=== PATIENT | male | born 1995 | race Caucasian/White ===

== ENCOUNTER 2018-06-02 13:53 | Outpatient (CLI) | payer OTHER, SELFPAY ==
[2018-06-02 14:36] LABS: Abs Immature Grans 0.01 k/cumm (0.0-0.09); Absolute Basophil Count 0.02 k/cumm (0.0-0.2); Absolute Eosinophil Count 0.03 k/cumm (0.0-0.7); Absolute Lymphocyte Count 1.59 k/cumm (1.2-3.4); Absolute Monocyte Count 0.51 k/cumm (0.11-0.7); Absolute Neutrophil Count 3.59 k/cumm (1.2-6.7); Basophils % 0.3; Eosinophils % 0.5; HCT 42.9 % (40.0-50.0); HGB 14.5 g/dL (13.5-17.5); Immature Grans % 0.2; Lymphocytes % 27.7; Mean Corp. HGB Concentration 33.8 g/dL (32.0-36.0); Mean Corpuscular Hemoglobin 29.5 pg (27.0-33.0); Mean Corpuscular Volume 87.4 fL (80-95); Mean Platelet Volume 13.8 fL (8.0-11.0); Monocytes % 8.9; Neutrophils % 62.4; Platelet Count 184 x1000/uL (130-400); RBC 4.91 m/cumm (4.50-6.00); RBC Distribution Width 13.1 % (11.8-14.1); White Blood Cell Count 5.75 k/cumm (4.4-10.8)
[2018-06-02 15:08] LABS: ALT 65 U/L (12-78); AST 25 U/L (15-37); Albumin 4.6 g/dL (3.4-5.0); Alkaline Phosphatase 48 U/L (46-116); Anion Gap 13.5 mmol/L (3-11); BUN 12 mg/dL (7-18); Bilirubin, Total 0.9 mg/dL (0.2-1.0); C-Reactive Protein 0.22 mg/dL (0.0-0.3); CO2 25.5 mmol/L (21.0-32.0); CREATININE 1.02 mg/dL (0.70-1.30); Calcium 9.4 mg/dL (8.5-10.1); Chloride 101 mmol/L (98-107); Glucose 84 mg/dL (70-100); Potassium 4.2 mmol/L (3.5-5.1); Sodium 140 mmol/L (136-145); Total Protein 7.4 g/dL (6.4-8.2)
[2018-06-02 16:37] LABS: ESR 7 MM/HR (0-15)
== END 2018-06-02 14:13 ==
PROVIDERS: Visit Provider Family Medicine
DX: R19.7 Diarrhea, unspecified (principal); K62.5 Hemorrhage of anus and rectum
CPT/HCPCS: 36415; 80053; 85652; 85025; 86140

== ENCOUNTER 2018-06-03 23:08 | Emergency (ER) | payer OTHER, SELFPAY ==
[2018-06-03 23:17] VITALS: BP 136/77; PULSE 87; RESP 16; TEMP 36.8; O2SAT 99
--- NOTE | 2018-06-04 00:03 | W.ED.GENAD ---
Discharge Plan Disposition Patient Disposition: HOME Condition: Good Discharge Details Chief Complaint: Abd Prob Clinical Impression: Abdominal cramping Primary Care Provider: None,None ED Provider: Kahlil Easley Home Meds and New Rx's Prescriptions: No Action No Known Home Meds RF: 0 Discharge Instructions Instructions: Abdominal Pain (ED) Additional Instructions: Keep your radiology appointment for Tuesday as scheduled. [facility] is [facility]. Return to emergency department for high fever, worsening/persistent abdominal pain, persistent vomiting, bloody stool, other concerns per. Medical Decision Making Patient has normal vital signs. He has unremarkable labs from yesterday. He has a completely benign abdomen. Stool is Hemoccult negative. Patient is scheduled for small bowel follow-through on Tuesday. Apparently they would like to rule out Crohn's disease. Given what he is describing I do not think this is likely. Patient came here because he was concerned about AAA. He has no risk factors and is young and healthy. There is no pulsatile mass. I am not concerned that this is in the differential. Patient reassured. [facility] test. Return to ED for worsening/persistent abdominal pain, vomiting, high fever, bloody stool. Lab Data Lab results reviewed: Yes I reviewed the patient's lab results. HPI General Mode of arrival: ambulatory. Date/Time Provider Initiated Documentation: 06/03/18 23:49. Limitations to Documentation: no limitations. Information obtained by: patient. HPI Narrative: Patient presents to ED with complaints of intermittent abdominal cramping. He also has episodes of diarrhea with constipation. He has noticed a little bit of blood on occasion in his stool over the last day. Symptoms started a couple days ago. He was seen at the [facility]. He had laboratory studies done here yesterday. He is scheduled for radiology study next week. He has not had fever. He has not had nausea or vomiting. He does have an appetite but does not want to eat just because he is worried that it might make him have pain or diarrhea. He has also had some muscle spasm on the right side of his back. He denies any urinary symptoms. He denies any medical or surgical history. Related Data Home Medications Medication Instructions Recorded Confirmed Unknown [No Known Home Meds] 06/03/18 06/03/18 Allergies Allergy/AdvReac Type Severity Reaction Status Date / Time No Known Allergies Allergy Unverified 06/03/18 23:21 General Stated Complaint: Abd Prob ZION: 3 Review of Systems Constitutional Denies chills, Denies fever(s), Denies headache(s), Denies poor appetite and Denies weakness ENT Denies otalgia, Denies facial pain, Denies headache(s), Denies nasal congestion, Denies neck pain and Denies sore throat Cardiovascular Denies chest pain, Denies edema and Denies dyspnea Respiratory Denies cough and Denies dyspnea Gastrointestinal Denies abdominal pain, Reports constipation, Reports cramping, Reports diarrhea, Denies nausea and Denies vomiting Genitourinary Denies hematuria, Denies dysuria, Denies flank pain, Denies testicular pain, Denies urinary frequency, Denies urinary hesitancy and Denies urinary incontinence Musculoskeletal Reports back pain, Denies myalgias, Denies arthralgias, Denies neck pain and Denies numbness Integumentary/Breasts Denies rash Neurologic Denies headache(s), Denies focal weakness, Denies numbness and Denies weakness [facility] Social History current occupational status: student Smoking/Tobacco Use Status: Current every day tobacco type: e-cigarettes alcohol intake: current alcohol intake frequency: a few times a month substance use type: marijuana Social History current occupational status: student Smoking/Tobacco Use Status: Current every day tobacco type: e-cigarettes alcohol intake: current alcohol intake frequency: a few times a month substance use type: marijuana Exam Const General: cooperative, comfortable and no acute distress Orientation: alert and oriented x3 HENMT Head: normocephalic and atraumatic Mouth: moist mucous membranes Eyes Sclera: sclerae normal Neck Neck: normal visual inspection, trachea midline and supple Resp Effort & Inspection: normal respiratory effort Auscultation: clear to auscultation bilaterally Cardio Rate: regular rate Rhythm: regular rhythm Heart Sounds: S1 normal and S2 normal GI Inspection: normal to inspection Palpation: soft, no hepatosplenomegaly, not firm, no guarding, no hernias, no masses, no pulsatile masses and nontender Auscultation: normal bowel sounds Rectal Exam: normal sphincter tone, prostate normal, heme negative stool, No hemorrhoids and No lesions 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 Male General Exam: Yes normal external exam and No hernia Back/Spine/Pelvis Back: no CVA tenderness and No back tenderness Thoracic/Lumbar Spine: thoracic and lumbar spine normal to inspection and thoraco-lumbar ROM normal Skin General skin exam: no rashes or lesions noted Neuro General: alert, oriented x3, no focal motor deficits and CN's II-XI intact bilaterally Extrem General: normal to inspection, full ROM and no clubbing, cyanosis or edema Course Vital Signs Temperature 98.2 F 06/03/18 23:17 Pulse 87 06/03/18 23:17 Respiratory Rate 16 06/03/18 23:17 Blood Pressure 136/77 06/03/18 23:17 Pulse Oximetry 99 06/03/18 23:17 Temperature 98.2 F 06/03/18 23:17 Temperature Source Temporal Artery Scan 06/03/18 23:17 Pulse 87 06/03/18 23:17 Respiratory Rate 16 06/03/18 23:17 Respiratory Effort Non-Labored 06/03/18 23:20 Blood Pressure 136/77 06/03/18 23:17 Blood Pressure Position Sitting 06/03/18 23:17 Pulse Oximetry 99 06/03/18 23:17 Oxygen Delivery Method Room Air 06/03/18 23:17 Oxygen Flow Rate 0 06/03/18 23:17 Pain Level 3 06/03/18 23:17
--- NOTE | 2018-06-04 00:24 | ED.GENADUL_ITS ---
Discharge Plan Disposition Patient Disposition: HOME Condition: Good Discharge Details Chief Complaint: Abd Prob Clinical Impression: Abdominal cramping Primary Care Provider: None,None ED Provider: Kahlil Easley Home Meds and New Rx's Prescriptions: No Action No Known Home Meds RF: 0 Discharge Instructions Instructions: Abdominal Pain (ED) Additional Instructions: Keep your radiology appointment for Tuesday as scheduled. [facility] is [facility]. Return to emergency department for high fever, worsening/persistent abdominal pain, persistent vomiting, bloody stool, other concerns per. Medical Decision Making Patient has normal vital signs. He has unremarkable labs from yesterday. He has a completely benign abdomen. Stool is Hemoccult negative. Patient is scheduled for small bowel follow-through on Tuesday. Apparently they would like to rule out Crohn's disease. Given what he is describing I do not think this is likely. Patient came here because he was concerned about AAA. He has no risk factors and is young and healthy. There is no pulsatile mass. I am not concerned that this is in the differential. Patient reassured. [facility] test. Return to ED for worsening/ persistent abdominal pain, vomiting, high fever, bloody stool. Lab Data Lab results reviewed: Yes I reviewed the patient's lab results. HPI General Mode of arrival: ambulatory . Date/Time Provider Initiated Documentation: 06/03/18 23:49 . Limitations to Documentation: no limitations . Information obtained by: patient . HPI Narrative: Patient presents to ED with complaints of intermittent abdominal cramping. He also has episodes of diarrhea with constipation. He has noticed a little bit of blood on occasion in his stool over the last day. Symptoms started a couple days ago. He was seen at the [facility]. He had laboratory studies done here yesterday. He is scheduled for radiology study next week. He has not had fever. He has not had nausea or vomiting. He does have an appetite but does not want to eat just because he is worried that it might make him have pain or diarrhea. He has also had some muscle spasm on the right side of his back. He denies any urinary symptoms. He denies any medical or surgical history. Related Data Home Medications Medication Instructions Recorded Confirmed Unknown [No Known Home Meds] 06/03/18 06/03/18 Allergies Allergy/AdvReac Type Severity Reaction Status Date / Time No Known Allergies Allergy Unverified 06/03/18 23:21 General Stated Complaint: Abd Prob ZION: 3 Review of Systems Constitutional Denies chills, Denies fever(s), Denies headache(s), Denies poor appetite and Denies weakness ENT Denies otalgia, Denies facial pain, Denies headache(s), Denies nasal congestion , Denies neck pain and Denies sore throat Cardiovascular Denies chest pain, Denies edema and Denies dyspnea Respiratory Denies cough and Denies dyspnea Gastrointestinal Denies abdominal pain, Reports constipation, Reports cramping, Reports diarrhea , Denies nausea and Denies vomiting Genitourinary Denies hematuria, Denies dysuria, Denies flank pain, Denies testicular pain, Denies urinary frequency, Denies urinary hesitancy and Denies urinary incontinence Musculoskeletal Reports back pain, Denies myalgias, Denies arthralgias, Denies neck pain and Denies numbness Integumentary/Breasts Denies rash Neurologic Denies headache(s), Denies focal weakness, Denies numbness and Denies weakness [facility] Social History current occupational status: student Smoking/Tobacco Use Status: Current every day tobacco type: e-cigarettes alcohol intake: current alcohol intake frequency: a few times a month substance use type: marijuana Social History current occupational status: student Smoking/Tobacco Use Status: Current every day tobacco type: e-cigarettes alcohol intake: current alcohol intake frequency: a few times a month substance use type: marijuana Exam Const General: cooperative, comfortable and no acute distress Orientation: alert and oriented x3 HENMT Head: normocephalic and atraumatic Mouth: moist mucous membranes Eyes Sclera: sclerae normal Neck Neck: normal visual inspection, trachea midline and supple Resp Effort & Inspection: normal respiratory effort Auscultation: clear to auscultation bilaterally Cardio Rate: regular rate Rhythm: regular rhythm Heart Sounds: S1 normal and S2 normal GI Inspection: normal to inspection Palpation: soft, no hepatosplenomegaly, not firm, no guarding, no hernias, no masses, no pulsatile masses and nontender Auscultation: normal bowel sounds Rectal Exam: normal sphincter tone, prostate normal, heme negative stool, No hemorrhoids and No lesions 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 Male General Exam: Yes normal external exam and No hernia Back/Spine/Pelvis Back: no CVA tenderness and No back tenderness Thoracic/Lumbar Spine: thoracic and lumbar spine normal to inspection and thoraco-lumbar ROM normal Skin General skin exam: no rashes or lesions noted Neuro General: alert, oriented x3, no focal motor deficits and CN's II-XI intact bilaterally Extrem General: normal to inspection, full ROM and no clubbing, cyanosis or edema Course Vital Signs Temperature 98.2 F 06/03/18 23:17 Pulse 87 06/03/18 23:17 Respiratory Rate 16 06/03/18 23:17 Blood Pressure 136/77 06/03/18 23:17 Pulse Oximetry 99 06/03/18 23:17 Temperature 98.2 F 06/03/18 23:17 Temperature Source Temporal Artery Scan 06/03/18 23:17 Pulse 87 06/03/18 23:17 Respiratory Rate 16 06/03/18 23:17 Respiratory Effort Non-Labored 06/03/18 23:20 Blood Pressure 136/77 06/03/18 23:17 Blood Pressure Position Sitting 06/03/18 23:17 Pulse Oximetry 99 06/03/18 23:17 Oxygen Delivery Method Room Air 06/03/18 23:17 Oxygen Flow Rate 0 06/03/18 23:17 Pain Level 3 06/03/18 23:17
[2018-06-04 00:28] VITALS: BP 119/73; PULSE 66; RESP 14; TEMP 37.1; O2SAT 98
== END 2018-06-04 00:27 | disposition home or self-care (01) ==
LOC: ER 06-04 00:28
PROVIDERS: Emergency Provider Emergency Medicine
DX: R10.84 Generalized abdominal pain (principal); K59.00 Constipation, unspecified; R19.7 Diarrhea, unspecified; M62.830 Muscle spasm of back
CPT/HCPCS: 99282

== ENCOUNTER 2018-06-06 00:49 | Outpatient (CLI) | payer OTHER, SELFPAY ==
[2018-06-06] MEDS: Barium Sulfate 60% W/V 355 ML BTL PO ×2 (10:22)
--- NOTE | 2018-06-06 10:22 | DI.RAD_ITS ---
SYMPTOM/DIAGNOSIS: DIARRHEA, RECTAL BLEEDING SMALL BOWEL FOLLOW THROUGH: Fluoroscopy Time: 44 SEC Preliminary KUB shows no evidence of bowel obstruction. The bones and joints appear intact. The transit time through the small bowel was approximately 45 minutes. No intrinsic or extrinsic masses, strictures or ulcers are seen in the small bowel The ileocecal region has a normal appearance. IMPRESSION: Normal small bowel follow through.
== END 2018-06-06 01:09 ==
PROVIDERS: Visit Provider Family Medicine
DX: R19.7 Diarrhea, unspecified (principal); K62.5 Hemorrhage of anus and rectum
CPT/HCPCS: 74250

== ENCOUNTER 2018-06-23 20:45 | Emergency (ER) | payer OTHER, SELFPAY ==
[2018-06-23 20:48] VITALS: BP 120/78; PULSE 77; RESP 18; TEMP 37.2; O2SAT 100
--- NOTE | 2018-06-23 21:03 | W.ED.GENAD ---
Discharge Plan Disposition Patient Disposition: HOME Condition: Stable Discharge Details Chief Complaint: GenMedical Clinical Impression: Segovia cyst Primary Care Provider: None,None ED Provider: Gonzalez Rock Home Meds and New Rx's Prescriptions: No Action No Known Home Meds RF: 0 Discharge Instructions Additional Instructions: Based on your exam I suspect you have a segovia's cyst. There is no findings at this time to suggest a blood clot or infection You can take 1000mg tylenol and 600mg ibuprofen every 6 hours for pain as needed if your leg becomes swollen or you have fevers or knee becomes red or swollen return to the emergency department Medical Decision Making 22 yo male who denies chronic med problems or recent immobilization or fevers comes in with cc of right lower medial thigh pain/knee pain. No falls or trauma, has no swelling of the knee or warmth to suggest infection. Has full rom of the knee, no calf pain or leg swelling. doubt entities such as fx, dvt baed on exam and do not feel imaging required. Could be strain though doesn't remember any injuries, could also be bakery's cyst. ADvised RICE and return if leg becomes swollen or if he has fevers/knee swelling/redness Differential Diagnosis strain, sprain, segovia's cyst HPI General Mode of arrival: ambulatory. Date/Time Provider Initiated Documentation: 06/23/18 20:53. Limitations to Documentation: no limitations. Information obtained by: patient. History of Present Illness 22 year old M presents to the emergency department with the chief complaint of lower thigh/knee pain, described as mild, with intensity rated at 4. Quality is described as aching, and is localized to the right and lower extremity. Patient reports no radiation. Patient started experiencing this day(s) (1) and it has been constant. No relieving factors improve symptom(s), No exacerbating factors reported . Patient notes no other symptoms.. Patient did receive the following treatments prior to arrival, none Related Data Home Medications Medication Instructions Recorded Confirmed Unknown [No Known Home Meds] 06/03/18 06/23/18 Allergies Allergy/AdvReac Type Severity Reaction Status Date / Time No Known Allergies Allergy Unverified 06/23/18 20:54 General Stated Complaint: GenMedical ZION: 4 Review of Systems Review of Systems All systems reviewed & are unremarkable except as noted in HPI and below Constitutional Denies chills, Denies fever(s) and Denies weakness Cardiovascular Denies chest pain and Denies dyspnea Respiratory Denies dyspnea Gastrointestinal Denies abdominal pain, Denies nausea and Denies vomiting Musculoskeletal Denies joint swelling Neurologic Denies weakness Endocrine Denies heat intolerance [facility] Medical History History of KUB (Acute 06/06/18) Marijuana use (Chronic) Abdominal pain (Acute) Watery stools (Acute) Intentional weight loss (Acute) Anxiety (Chronic) Blood in stool (Acute) Social History current occupational status: student Smoking/Tobacco Use Status: Current every day tobacco type: e-cigarettes alcohol intake: current alcohol intake frequency: a few times a month substance use type: marijuana Exam Const General: no acute distress Orientation: alert HENMT Head: normal to inspection Ears: external ears normal General nose exam: external nose normal Mouth: moist mucous membranes Eyes General: appearance normal, both eyes and all related structures Neck Neck: normal visual inspection Resp Effort & Inspection: normal respiratory effort and able to speak in complete sentences Cardio Rate: regular rate Skin General skin exam: no rashes or lesions noted Neuro General: alert and oriented x3 Extrem General: normal to inspection Psych Mental Status: mental status grossly normal Course Vital Signs Temperature 37.2 C 06/23/18 20:48 Pulse 77 06/23/18 20:48 Respiratory Rate 18 06/23/18 20:48 Blood Pressure 120/78 06/23/18 20:48 Pulse Oximetry 100 06/23/18 20:48 Temperature 37.2 C 06/23/18 20:48 Temperature Source Skin 06/23/18 20:48 Pulse 77 06/23/18 20:48 Respiratory Rate 18 06/23/18 20:48 Respiratory Effort 06/23/18 20:48 Blood Pressure 120/78 06/23/18 20:48 Pulse Oximetry 100 06/23/18 20:48 Oxygen Delivery Method Room Air 06/23/18 20:48 Oxygen Flow Rate 0 06/23/18 20:48
--- NOTE | 2018-06-23 21:06 | ED.GENADUL_ITS ---
Discharge Plan Disposition Patient Disposition: HOME Condition: Stable Discharge Details Chief Complaint: GenMedical Clinical Impression: Segovia cyst Primary Care Provider: None,None ED Provider: Gonzalez Rock Home Meds and New Rx's Prescriptions: No Action No Known Home Meds RF: 0 Discharge Instructions Additional Instructions: Based on your exam I suspect you have a segovia's cyst. There is no findings at this time to suggest a blood clot or infection You can take 1000mg tylenol and 600mg ibuprofen every 6 hours for pain as needed if your leg becomes swollen or you have fevers or knee becomes red or swollen return to the emergency department Medical Decision Making 22 yo male who denies chronic med problems or recent immobilization or fevers comes in with cc of right lower medial thigh pain/knee pain. No falls or trauma, has no swelling of the knee or warmth to suggest infection. Has full rom of the knee, no calf pain or leg swelling. doubt entities such as fx, dvt baed on exam and do not feel imaging required. Could be strain though doesn't remember any injuries, could also be bakery's cyst. ADvised RICE and return if leg becomes swollen or if he has fevers/knee swelling/redness Differential Diagnosis strain, sprain, segovia's cyst HPI General Mode of arrival: ambulatory . Date/Time Provider Initiated Documentation: 06/23/18 20:53 . Limitations to Documentation: no limitations . Information obtained by: patient . History of Present Illness 22 year old M presents to the emergency department with the chief complaint of lower thigh/knee pain, described as mild, with intensity rated at 4. Quality is described as aching, and is localized to the right and lower extremity. Patient reports no radiation. Patient started experiencing this day(s) (1) and it has been constant. No relieving factors improve symptom(s), No exacerbating factors reported . Patient notes no other symptoms.. Patient did receive the following treatments prior to arrival, none Related Data Home Medications Medication Instructions Recorded Confirmed Unknown [No Known Home Meds] 06/03/18 06/23/18 Allergies Allergy/AdvReac Type Severity Reaction Status Date / Time No Known Allergies Allergy Unverified 06/23/18 20:54 General Stated Complaint: GenMedical ZION: 4 Review of Systems Review of Systems All systems reviewed & are unremarkable except as noted in HPI and below Constitutional Denies chills, Denies fever(s) and Denies weakness Cardiovascular Denies chest pain and Denies dyspnea Respiratory Denies dyspnea Gastrointestinal Denies abdominal pain, Denies nausea and Denies vomiting Musculoskeletal Denies joint swelling Neurologic Denies weakness Endocrine Denies heat intolerance [facility] Medical History History of KUB (Acute 06/06/18) Marijuana use (Chronic) Abdominal pain (Acute) Watery stools (Acute) Intentional weight loss (Acute) Anxiety (Chronic) Blood in stool (Acute) Social History current occupational status: student Smoking/Tobacco Use Status: Current every day tobacco type: e-cigarettes alcohol intake: current alcohol intake frequency: a few times a month substance use type: marijuana Exam Const General: no acute distress Orientation: alert HENMT Head: normal to inspection Ears: external ears normal General nose exam: external nose normal Mouth: moist mucous membranes Eyes General: appearance normal, both eyes and all related structures Neck Neck: normal visual inspection Resp Effort & Inspection: normal respiratory effort and able to speak in complete sentences Cardio Rate: regular rate Skin General skin exam: no rashes or lesions noted Neuro General: alert and oriented x3 Extrem General: normal to inspection Psych Mental Status: mental status grossly normal Course Vital Signs Temperature 37.2 C 06/23/18 20:48 Pulse 77 06/23/18 20:48 Respiratory Rate 18 06/23/18 20:48 Blood Pressure 120/78 06/23/18 20:48 Pulse Oximetry 100 06/23/18 20:48 Temperature 37.2 C 06/23/18 20:48 Temperature Source Skin 06/23/18 20:48 Pulse 77 06/23/18 20:48 Respiratory Rate 18 06/23/18 20:48 Respiratory Effort 06/23/18 20:48 Blood Pressure 120/78 06/23/18 20:48 Pulse Oximetry 100 06/23/18 20:48 Oxygen Delivery Method Room Air 06/23/18 20:48 Oxygen Flow Rate 0 06/23/18 20:48
== END 2018-06-23 21:14 | disposition home or self-care (01) ==
LOC: ER 21:14
PROVIDERS: Emergency Provider Emergency Medicine
DX: M71.22 Synovial cyst of popliteal space [Baker], left knee (principal)
CPT/HCPCS: 99282; 99283

== ENCOUNTER 2018-06-24 14:25 | Emergency (ER) | payer OTHER, BC, SELFPAY ==
[2018-06-24 14:29] VITALS: BP 125/74; PULSE 87; RESP 16; TEMP 36.8; O2SAT 97
--- NOTE | 2018-06-24 15:03 | ED.GENADUL_ITS ---
Discharge Plan Disposition Patient Disposition: HOME Condition: Good Discharge Details Chief Complaint: Nk/Back Pain Clinical Impression: Knee pain, left Primary Care Provider: None,None ED Provider: Grey Daigle Home Meds and New Rx's Prescriptions: New acetaminophen [Mapap Extra Strength] 500 MG tablet 500 mg PO Q6H 5 Days Qty: 60 RF: 0 lidocaine [Lidoderm] 1 PATCH patch 1 patch Topical Q24H Qty: 4 RF: 0 ibuprofen [Motrin IB] 200 MG tablet 600 mg PO Q6H 5 Days Qty: 60 RF: 0 Discharge Instructions Instructions: Knee Pain (ED) Additional Instructions: Please take Tylenol and Motrin as needed for pain. Please ice it every 15 minutes. Please follow-up for your outpatient ultrasound appointment. Please continue to use your Luiz wrap as we discussed. If you notice any worsening of your symptoms, or any new symptoms such as vomiting, diarrhea, fever, chills, shortness of breath, chest pain, numbness, weakness, or fainting , please return immediately to the emergency department for reevaluation. Please follow up with your primary care provider as soon as possible for reassessment and reevaluation. As always, it was a pleasure participating in your medical care today. Medical Decision Making This is a pleasant 22-year-old male who presents for second opinion on his knee. The patient states that he developed mild knee pain on the medial aspect roughly 24 hours ago, he was seen by my colleague Dr. oRck yesterday, wh o performed an appropriate physical exam, and felt the patient signs and symptoms were inconsistent with a DVT and were clinically concerning with a Segovia's cyst. Patient was sent home, and his used an Luiz wrap but has not been using any ice, Tylenol or Motrin as recommended. He came in today for second opinion. Patient's physical exam findings have not changed. He does have slight left lower sided back pain, however this comes and goes and he states that he is asymptomatic now. There are no concerning red flags for his back pain with no IV drug use, no saddle anesthesia, no signs of injury or trauma. Physical exam of his knee demonstrates some mild tenderness at the medial aspect on palpation of the muscular structures, concerning for a sartorius sprain. Additionally he does have some fullness behind his left knee concerning for Segovia's cyst. Range of motion, and other testing of the knee demonstrates no abnormalities. No signs of osseous fracture or abnormality, no joint laxity. I do not think that an x-ray is indicated at this time. Patient's PERC and wells scores are both negative and in the lowest risk category. However the patient states that he does have a lot of anxiety issues, and he is very reassured at this time however he is concerned that if he goes home he will start to worry again and worried about a DVT. He has no red flags or risk factors for DVT and I feel that this is both unlikely and clinically inconsistent with his current physical exam findings. However through shared decision making process and respecting patient's wishes I have offered an ultrasound on an outpatient basis since we do not have ultrasound available at this time. Patient has accepted this. I discussed potential anticoagulation starting, and the patient states that he does not want any medications and he certainly does not want any anticoagulant medications. I discussed with the patient the vital importance of continuing the Tylenol, Motrin and icing as directed. We discussed red flags which return the patient understands as well as the importance of close follow- up for his ultrasound of his lower extremity. All questions were answered from the patient. Patient will be discharged home with outpatient ultrasound, continue Tylenol, Motrin, and ice use. I have extensively reviewed the treatment plan and discharge instructions with the patient and their family. I have addressed all patient concerns at this time. The patient and family was made aware of what symptoms to monitor for that would warrant a return to the emergency department. Discussed the plan with the patient and family, they demonstrate verbal understanding and agreement with our assessment and plan at this time. HPI General Date/Time Provider Initiated Documentation: 06/24/18 14:29 . HPI Narrative: This is a 22-year-old male with past medical history of irritable bowel syndrome, and anxiety who presents today for evaluation of knee pain. The patient's pain began yesterday. He denies any inciting event. He denies any trauma. He denies hearing any pops. He was seen and assessed here in the emergency department by Dr. Rock. At that time the patient's physical exam was clinically consistent with any acute pathologies and he was discharged home with a diagnosis of a Segovia's cyst. The patient states that he went home, but later felt that his visit was too quick and he wanted a reassessment and a second opinion. He states that he has a history of anxiety when he thinks about potential bad things that could happen, and he has thought about a blood clot is very worried about this. Patient does admit to some mild back pain on the left that comes and goes occasionally. It is not severe, there is no radiation down the leg. He has no associated numbness or tingling. He denies any bowel or bladder incontinence. He denies any weakness in his lower extremities. Denies PE risk factors such as recent long car rides, immobilization, recent surgery, prior history of DVT or PE, family history of PE or DVT, morbid obesity, exogenous estrogen and smoking, hemoptysis, history of cancer. The patient denies any trauma, any falls, or any other modifying factors historically. He denies any previous injury to the joint. Pain is very mild and located on the medial aspect of his left knee. It is worse with palpation, not particularly worsened with movement. He has no limp. Patient denies any other complaints at this time. He denies any recent surgeries. He denies any IV or illicit drug use. He denies any systemic symptoms of fever or chills. Related Data Home Medications Medication Instructions Recorded Confirmed acetaminophen [Mapap Extra 500 mg PO Q6H 5 Days #60 tab 06/24/18 Strength] ibuprofen [Motrin Ib] 600 mg PO Q6H 5 Days #60 tab 06/24/18 lidocaine [Lidoderm] 1 patch TOPICAL Q24H #4 patch 06/24/18 Previous Rx's Medication Instructions Recorded acetaminophen [Mapap Extra 500 mg PO Q6H 5 Days #60 tab 06/24/18 Strength] ibuprofen [Motrin Ib] 600 mg PO Q6H 5 Days #60 tab 18 lidocaine [Lidoderm] 1 patch TOPICAL Q24H #4 patch 06/24/18 Allergies Allergy/AdvReac Type Severity Reaction Status Date / Time No Known Allergies Allergy Unverified 06/24/18 14:33 General Stated Complaint: Nk/Back Pain ZION: 4 Review of Systems Review of Systems All systems reviewed & are unremarkable except as noted in HPI and below PFSH Social History current occupational status: student Smoking/Tobacco Use Status: Current every day tobacco type: e-cigarettes alcohol intake: current alcohol intake frequency: a few times a month substance use type: marijuana Exam Narrative Exam Narrative: 1.Const: Well-nourished, Well-developed, appearing stated age 2.Eyes: PERRL, no conjunctival injection, and symmetrical lids. 3.ENT: Atraumatic external nose and ears. Moist MM. Neck: Symmetric, trachea midline, No thyromegaly. 4.CVS: +S1/S2, No murmurs or gallops. Peripheral pulses 2+ and equal in all extremities. Brisk capillary refill in all extremities. 5.RESP: Unlabored respiratory effort. Clear to auscultation bilaterally. No wheezes rales or rhonchi 6.GI: Soft, Nontender/Nondistended, No hepatosplenomegaly. No guarding or rebound. 7.MSK: Normocephalic/Atraumatic, Extremities w/o deformity or ttp No cyanosis or clubbing, Normal movement of all extremities no midline tenderness to palpation over the CTLS spine. Normal ROM in flexion, extension, side bend, and rotation. Patient has +5 out of 5 strength in the lower extremities in dorsiflexion and plantarflexion, knee flexion and extension, hip flexion and extension. There is +2 over 2 dorsalis pedis pulses bilaterally. There is normal sensation to the skin with light touch at the foot, knee, and hip. Normal saddle sensation. Good sensation over the deep sural nerve area bilaterally. Rectal exam demonstrated normal rectal tone, normal perirectal sensation.. Reflexes are +2 over 4 in the patellar reflex bilaterally. +5 out of 5 strength in the medial, ulnar, radial nerve distribution bilaterally in the hands as well as intact light touch sensation to these dermatomes on the hands. Patient has +5 out of 5 strength in the lower extremities in dorsiflexion and plantarflexion, knee flexion and extension, hip flexion and extension. There is +2 over 2 dorsalis pedis pulses bilaterally. There is normal sensation to the skin with light touch at the foot knee and hip. Patient demonstrates no ligamentous laxity or pain with varus or valgus stressing. Kavitha test demonstrated no tenderness. No laxity or pain on anterior posterior drawer test. Mild fullness over the medial aspect of the knee in the posterior aspect. Minimal tenderness on palpation of the muscular structures of the medial knee. Good range of motion with no restrictions, soft compartments in all components of the lower extremity 8.Skin: Warm, Dry. No rashes or lesions. 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 Sensation grossly intact, no focal neurologic deficits. 10.Psych: (AAO) x3. Appropriate mood and affect Course Vital Signs Temperature 36.8 C 06/24/18 14:29 Pulse 87 06/24/18 14:29 Respiratory Rate 16 06/24/18 14:29 Blood Pressure 125/74 06/24/18 14:29 Pulse Oximetry 97 06/24/18 14:29 Temperature 36.8 C 06/24/18 14:29 Temperature Source Skin 06/24/18 14:29 Pulse 87 06/24/18 14:29 Respiratory Rate 16 06/24/18 14:29 Respiratory Effort Non-Labored 06/24/18 14:32 Blood Pressure 125/74 06/24/18 14:29 Pulse Oximetry 97 06/24/18 14:29 Pain Level 0 06/24/18 14:29
== END 2018-06-24 15:33 | disposition home or self-care (01) ==
PROVIDERS: Emergency Provider Student in an Organized Health Care Education/Training Program
DX: M25.562 Pain in left knee (principal); M71.22 Synovial cyst of popliteal space [Baker], left knee
CPT/HCPCS: 99282

== ENCOUNTER 2018-06-26 00:32 | Outpatient (CLI) | payer OTHER, SELFPAY ==
--- NOTE | 2018-06-26 11:02 | DI.US_ITS ---
SYMPTOMS/DIAGNOSIS: PAIN LEFT LOWER EXTREMITY, ? DVT DUPLEX VENOUS ULTRASOUND, LEFT LOWER EXTREMITY: Duplex evaluation of the deep venous system was performed according to the usual protocol. The deep veins are freely compressible throughout to the level of the popliteal veins. There is normal Doppler flow visible throughout and there is excellent flow augmentation with manual calf compression. CONCLUSION: No evidence of deep venous thrombosis.
== END 2018-06-26 00:52 ==
PROVIDERS: Visit Provider Student in an Organized Health Care Education/Training Program
DX: M79.662 Pain in left lower leg (principal)
CPT/HCPCS: 93971

== ENCOUNTER 2018-06-26 11:34 | Emergency (ER) | payer OTHER, SELFPAY ==
[2018-06-26 11:41] VITALS: BP 117/60; PULSE 60; RESP 16; TEMP 36.9
== END 2018-06-26 11:58 | disposition left before discharge ==
LOC: ER 11:50
DX: M79.662 Pain in left lower leg (principal)

== ENCOUNTER 2018-07-22 12:47 | Emergency (ER) | payer OTHER, BC, SELFPAY ==
[2018-07-22 12:50] VITALS: BP 129/73; PULSE 87; RESP 16; TEMP 36.7; O2SAT 99
[2018-07-22 13:17] LABS: Bilirubin Negative (Negative); Blood Negative (Negative); Clarity Clear; Glucose Negative (Negative); Ketones Negative (Negative); Leukocyte Esterase Negative (Negative); Nitrite Negative (Negative); Urobilinogen 0.2 EU/dL (Up TO 0.2)
--- NOTE | 2018-07-22 13:37 | W.ED.GENAD ---
Discharge Plan Disposition Patient Disposition: HOME Condition: Stable Discharge Details Chief Complaint: GenMedical Clinical Impression: Groin swelling, Chronic knee pain Primary Care Provider: None,None ED Provider: Rae Geiger Home Meds and New Rx's Prescriptions: No Action lidocaine [Lidoderm] 1 PATCH patch 1 patch Topical Q24H Qty: 4 RF: 0 Discharge Instructions Instructions: Groin Strain (ED), Knee Pain (ED) Additional Instructions: You will receive a call from care management regarding a follow-up appointment with your primary care doctor. Return to the emergency department with any worsening or new concerning symptoms. Discharge Data Discharge Date/Time-TO BE ENTERED AT DEPARTURE: 07/22/18 14:39 Discharge Physician: Rae Geiger Medical Decision Making 22-year-old male who presents with 2 complaints. First complaint is swelling at the base of his penis that occurs after intercourse. Admits to some swelling currently. He denies any pain, itching, discharge. He also admits to occasional burning with urination but this is very rare. He also denies any fever, vomiting or abdominal pain. States he is sexually active with one partner and denies any known STDs. Second complaint is chronic left knee pain for the past few months. Patient was seen here last month for the same complaint and was diagnosed with a Segovia's cyst. Patient states he followed up and had an ultrasound which was negative for a cyst or a DVT he. He denies any knee pain at this time and states it is intermittent. Examination of the genitourinary region reveals a very minimal amount of edema noted to the base of the left penis. Without patient complaining of this, it may not be even noticeable. There is no erythema, induration or fluctuance. There are no lesions noted. The remainder of the exam is normal. He has a normal left knee exam. I do not see any evidence of infection, trauma to the knee and he is neurovascularly intact. Discussed with patient the possibilities of his groin symptoms including groin strain, lymph node, cyst, lipoma. Also discussed the possibilities of his chronic left knee pain and he denies any known injury or trauma, and no evidence of infection, making the possibility is to include some sort of arthritis We checked a clean catch urinalysis which was negative. I discussed with patient obtaining a dirty sample due to his complaints of rarely having dysuria but he is declining this at this time would rather leave. Will place patient on care management list to arrange for follow-up appoint with primary care doctor and return here at any time. Medical Records Medical records reviewed: Yes I reviewed the patient's medical records. Lab Data Lab results reviewed: Yes I reviewed the patient's lab results. Lab results narrative: Laboratory Tests Range/Units 07/22/18 07/22/18 13:00 13:59 Urine Color (Yellow) Yellow Cancelled Urine Clarity Clear Cancelled Urine pH (5-8) 7.0 Cancelled Ur Specific [place] (1.005-1.025) 1.020 Cancelled Urine Protein (Negative) mg/dL Negative Cancelled Urine Ketones (Negative) mg/dL Negative Cancelled Urine Blood (Negative) Negative Cancelled Urine Nitrite (Negative) Negative Cancelled Urine Bilirubin (Negative) Negative Cancelled Urine Urobilinogen (Up TO 0.2) EU/dL 0.2 Cancelled Ur Leukocyte Esterase (Negative) Negative Cancelled Urine Glucose (Negative) mg/dL Negative Cancelled HPI General Mode of arrival: ambulatory. Date/Time Provider Initiated Documentation: 07/22/18 12:56. Limitations to Documentation: no limitations. Information obtained by: patient. HPI Narrative: Patient is a 22-year-old male who presents with 2 complaints. First complaint is swelling at the base of his penis that occurs after intercourse. Admits to some swelling currently. He denies any pain, itching, discharge. He also admits to occasional burning with urination but this is very rare. He also denies any fever, vomiting or abdominal pain. States he is sexually active with one partner and denies any known STDs. Second complaint is chronic left knee pain for the past few months. Patient was seen here last month for the same complaint and was diagnosed with a Segovia's cyst. Patient states he followed up and had an ultrasound which was negative for a cyst or a DVT. He denies any knee pain at this time and states it is intermittent. Related Data Home Medications Medication Instructions Recorded Confirmed lidocaine [Lidoderm] 1 patch TOPICAL Q24H #4 patch 06/24/18 07/22/18 Previous Rx's Medication Instructions Recorded lidocaine [Lidoderm] 1 patch TOPICAL Q24H #4 patch 06/24/18 Allergies Allergy/AdvReac Type Severity Reaction Status Date / Time No Known Allergies Allergy Verified 07/22/18 12:50 General Stated Complaint: GenMedical ZION: 3 Review of Systems Review of Systems All systems reviewed & are unremarkable except as noted in HPI and below Constitutional Reports as per HPI, Denies chills and Denies fever(s) Eyes Denies blurry vision ENT Denies dizziness, Denies sore throat and Denies throat swelling Cardiovascular Denies chest pain and Denies dyspnea Respiratory Denies dyspnea Gastrointestinal Denies abdominal pain, Denies diarrhea and Denies vomiting Genitourinary Denies hematuria, Denies difficulty urinating, Denies difficulty with ejaculations, Denies erectile dysfunction, Denies genital lesions, Reports dysuria, Denies painful ejaculations, Denies penile discharge and Denies testicular pain Musculoskeletal Denies back pain and Denies numbness Integumentary/Breasts Denies lesions and Denies rash Neurologic Denies dizziness and Denies numbness Allergic/Immunologic Denies throat swelling [facility] Medical History History of KUB (Acute 06/06/18) Marijuana use (Chronic) Abdominal pain (Acute) Watery stools (Acute) Intentional weight loss (Acute) Anxiety (Chronic) Blood in stool (Acute) Social History current occupational status: student Smoking/Tobacco Use Status: Current every day tobacco type: e-cigarettes alcohol intake: current alcohol intake frequency: a few times a month substance use type: marijuana Exam Const General: cooperative, healthy appearing and no acute distress HENMT Head: normal to inspection Face and sinus: normal facial exam Eyes General: appearance normal, both eyes and all related structures Pupils: PERRL EOM: EOM intact bilaterally Neck Neck: normal visual inspection and No submandibular swelling Lymphatic: no lymphadenopathy noted Chest Chest: normal inspection of the chest and no tenderness Resp Effort & Inspection: normal respiratory effort and able to speak in complete sentences Auscultation: clear to auscultation bilaterally Cardio Rate: regular rate Rhythm: regular rhythm GI Inspection: normal to inspection Palpation: soft, not firm, not rigid and nontender Auscultation: normal bowel sounds Male General Exam: No ecchymosis, Yes edema on the left (very minimal area approx [id number] located at L side base of penis), No erythema, No hernia, No lacerations, No lesions and No tenderness Scrotum: scrotum normal Testes: normal Skin General skin exam: no rashes or lesions noted Neuro General: alert, awake and oriented x3 Cognition: normal cognition Speech: speech normal Motor: muscle tone normal throughout Sensory Exam: no sensory deficits noted Extrem General: normal to inspection, full ROM, normal capillary refill, no calf tenderness bilaterally and no edema Left lower extremity: knee Details: normal to inspection, normal ROM and knee ligament exam normal; no tenderness, no swelling, no abrasions, no lacerations, no ecchymosis, no crepitus, no deformity and no unusual warmth Psych Appearance: grossly normal Mental Status: mental status grossly normal Speech and Movement: speech and movement normal Affect: normal affect Course Vital Signs Temperature 98.1 F 07/22/18 12:50 Pulse 87 07/22/18 12:50 Respiratory Rate 16 07/22/18 12:50 Blood Pressure 129/73 07/22/18 12:50 Pulse Oximetry 99 07/22/18 12:50 Temperature 98.1 F 07/22/18 12:50 Temperature Source Temporal Artery Scan 07/22/18 12:50 Pulse 87 07/22/18 12:50 Respiratory Rate 16 07/22/18 12:50 Respiratory Effort 07/22/18 13:25 Blood Pressure 129/73 07/22/18 12:50 Pulse Oximetry 99 07/22/18 12:50 Oxygen Delivery Method Room Air 07/22/18 12:50 Oxygen Flow Rate 0 07/22/18 12:50 Pain Level 3 07/22/18 12:50 Lab/Test Results Lab/Test Results: Laboratory Tests Range/Units 07/22/18 13:00 Urine Color (Yellow) Yellow Urine Clarity Clear Urine pH (5-8) 7.0 Ur Specific [place] (1.005-1.025) 1.020 Urine Protein (Negative) mg/dL Negative Urine Ketones (Negative) mg/dL Negative Urine Blood (Negative) Negative Urine Nitrite (Negative) Negative Urine Bilirubin (Negative) Negative Urine Urobilinogen (Up TO 0.2) EU/dL 0.2 Ur Leukocyte Esterase (Negative) Negative Urine Glucose (Negative) mg/dL Negative
--- NOTE | 2018-07-24 10:05 | CMPROGNOTE_ITS ---
Care Management Progress Note 07/24-Dr. Geiger requested assistance with a PCP (Lynne) f/u in 1-2 weeks for groin pain and chronic knee pain. Referral faxed to [facility] this am.
== END 2018-07-22 14:39 | disposition home or self-care (01) ==
LOC: ER 14:45
PROVIDERS: Emergency Provider Physician Assistant; PCP Family Medicine
DX: N48.89 Other specified disorders of penis (principal); M25.562 Pain in left knee; G89.29 Other chronic pain; R30.0 Dysuria
CPT/HCPCS: 99282; 81003

== ENCOUNTER 2018-09-12 07:58 | Outpatient (CLI) | payer OTHER, SELFPAY ==
--- NOTE | 2018-09-12 16:14 | DI.US_ITS ---
SYMPTOM/DIAGNOSIS: LT INGUINAL PAIN, R10.32, ? MASS, LLQ PAIN HERNIA/INGUINAL ULTRASOUND: There is no evidence of a hernia. Multiple small lymph nodes are demonstrated, the largest measuring approximately 1.5 cm. in maximal diameter in the left groin.
== END 2018-09-12 08:18 ==
PROVIDERS: PCP Family Medicine; Visit Provider Specialist/Technologist Athletic Trainer
DX: R10.32 Left lower quadrant pain (principal); R59.0 Localized enlarged lymph nodes
CPT/HCPCS: 76857

== ENCOUNTER 2018-09-28 15:29 | Emergency (ER) | payer OTHER, SELFPAY ==
[2018-09-28 15:42] VITALS: BP 122/64; PULSE 75; RESP 16; TEMP 36.9; O2SAT 100
--- NOTE | 2018-09-28 16:03 | ED.GENADUL_ITS ---
Discharge Plan Disposition Patient Disposition: HOME Condition: Good Discharge Details Chief Complaint: Chest Pain Clinical Impression: Precordial catch syndrome Primary Care Provider: Boris Doyle ED Provider: Grey Daigle Home Meds and New Rx's Prescriptions: No Action lidocaine [Lidoderm] 1 PATCH patch 1 patch Topical Q24H Qty: 4 RF: 0 Discharge Instructions Instructions: Chest Pain (ED) Additional Instructions: Yourr symptoms are consistent with precordial catch syndrome. There is no evidence of a heart attack or popped lung on ultrasound exam and EKG. please drink 10-12 cups of water per day, and take Tylenol and Motrin as needed for pain .if you notice any worsening of your symptoms, or any new symptoms such as vomiting, diarrhea, fever, chills, shortness of breath, chest pain, numbness, weakness, or fainting , please return immediately to the emergency department for reevaluation. Please follow up with your primary care provider as soon as possible for reassessment and reevaluation. As always, it was a pleasure participating in your medical care today. Referrals: Boris Doyle [Primary Care Provider] - Discharge Data Discharge Date/Time-TO BE ENTERED AT DEPARTURE: 09/28/18 16:09 Medical Decision Making This is a pleasant 22-year-old male who comes in with 1-1/2 days of occasional sharp chest pain, not on by certain positions, but also relieved with movement and on its own. The pain is sharp in nature, it lasted roughly 1 second but it goes away completely. He has no red flags for pulmonary embolism, no family history of cardiac disease, no family history of sudden , no cardiac risk factors for himself, or signs of trauma. Physical exam reveals no abnormalities, no concerning red flags of tearing sensation, pulse discrepancy, or syncope. Bedside limited ultrasound demonstrates normal lung sliding from both lungs, no evidence of pericardial effusion on limited bedside ultrasound. EKG is normal sinus rhythm with no significant abnormalities. No clinical evidence of STEMI. I feel that the patient signs and symptoms are clinically consistent with precordial catch syndrome, and at this time clinically inconsistent with PE, dissection, or myocardial infarction. No clinical evidence of pericarditis at this time. Recommend continue NSAIDs at home, stretching, and close follow-up. We discussed red flags which to return and the patient understands. I have extensively reviewed the treatment plan and discharge instructions with the patient. I have addressed all patient concerns at this time. The patient was made aware of what symptoms to monitor for that would warrant a return to the emergency department. Discussed the plan with the patient, they demonstrate verbal understanding and agreement with our assessment and plan at this time. Precordial catch syndrome, 15: 38 Rate 81, intervals normal, sinus rhythm, no significant ST elevations or depressions, no T wave inversions, no evidence of epsilon wave or delta wave. Normal EKG HPI General Date/Time Provider Initiated Documentation: 09/28/18 15:45 . HPI Narrative: This is a 22-year-old male with a past medical history of mild anxiety, presents today for evaluation of chest pain. The patient states that yesterday he developed mild left chest achiness, it would come and go just last a few seconds. Today he had 2 or 3 episodes of brief sharp chest pain that would last roughly 1 second, and then completely resolved. Symptoms are worse with movement, but at the same time also improved with movement and repositioning. He denies any associated cough, fever, chills, neuritic chest pain, chest heaviness or chest tightness. He denies any arm, neck, or shoulder pain. He denies any tearing sensation in his chest. He denies any vomiting or diarrhea. He denies any headache, numbness, tingling, weakness or fever. The patient denies any previous symptoms like this. He denies any family history of cardiac disease. He denies any tobacco abuse. Denies PE risk factors such as recent long car rides, immobilization, recent surgery, prior history of DVT or PE, family history of PE or DVT, morbid obesity, exogenous estrogen and smoking, hemoptysis, history of cancer.He denies any recent trauma or other modifying factors. He denies any IV or illicit drug use or pertinent family history. Related Data Home Medications Medication Instructions Recorded Confirmed lidocaine [Lidoderm] 1 patch TOPICAL Q24H #4 patch 06/24/18 09/28/18 Previous Rx's Medication Instructions Recorded lidocaine [Lidoderm] 1 patch TOPICAL Q24H #4 patch 06/24/18 Allergies Allergy/AdvReac Type Severity Reaction Status Date / Time No Known Allergies Allergy Verified 09/28/18 15:45 General Stated Complaint: Chest Pain ZION: 2 Review of Systems Review of Systems All systems reviewed & are unremarkable except as noted in HPI and below PFSH Social History Smoking/Tobacco Use Status: Current every day Tobacco Type: e-cigarettes Alcohol Intake: current Alcohol Intake frequency: a few times a month Drug use: Occasionally Substance use type: marijuana Do you feel safe in your relationship?: Yes Exam Narrative Exam Narrative: 1.Const: Well-nourished, Well-developed, appearing stated age 2.Eyes: PERRL, no conjunctival injection, and symmetrical lids. 3.ENT: Atraumatic external nose and ears. Moist MM. Neck: Symmetric, trachea midline, No thyromegaly. 4.CVS: +S1/S2, No murmurs or gallops. Peripheral pulses 2+ and equal in all extremities. Brisk capillary refill in all extremities. Dorsalis pedis, posterior tibial and radial pulse +2 in all extremities. 5.RESP: Unlabored respiratory effort. Clear to auscultation bilaterally. No wheezes rales or rhonchi 6.GI: Soft, Nontender/Nondistended, No hepatosplenomegaly. No guarding or rebound. 7.MSK: Normocephalic/Atraumatic, Extremities w/o deformity or ttp No cyanosis or clubbing, Normal movement of all extremities 8.Skin: Warm, Dry. No rashes or lesions. 9.Neuro: healthcare market consultant II-XII grossly intact. Sensation grossly intact, no focal neurologic deficits. 10.Psych: (AAO) x3. Appropriate mood and affect Course Vital Signs Temperature 36.9 C 09/28/18 15:42 Pulse 75 09/28/18 15:42 Respiratory Rate 16 09/28/18 15:42 Blood Pressure 122/64 09/28/18 15:42 Pulse Oximetry 100 09/28/18 15:42 Temperature 36.9 C 09/28/18 15:42 Temperature Source Skin 09/28/18 15:42 Pulse 75 09/28/18 15:42 Respiratory Rate 16 09/28/18 15:42 Respiratory Effort Non-Labored 09/28/18 15:42 Blood Pressure 122/64 09/28/18 15:42 Blood Pressure Position Sitting 09/28/18 15:42 Pulse Oximetry 100 09/28/18 15:42 Oxygen Delivery Method Room Air 09/28/18 15:42 Oxygen Flow Rate 0 09/28/18 15:42 Pain Level 0 09/28/18 15:42
[2018-09-28 17:31] VITALS: RESP 16
== END 2018-09-28 16:09 | disposition home or self-care (01) ==
PROVIDERS: Emergency Provider Student in an Organized Health Care Education/Training Program; PCP Specialist/Technologist Athletic Trainer
DX: R07.2 Precordial pain (principal); F41.8 Other specified anxiety disorders
CPT/HCPCS: 93005; 99284; 93010

== ENCOUNTER 2018-09-28 20:23 | Outpatient (REF) | payer OTHER, SELFPAY ==
[2018-10-02 14:03] LABS: Chlamydia Result Negative; GC Result Negative; Specimen Description URINE
== END 2018-09-28 20:43 ==
LOC: NCHCN 20:23
PROVIDERS: PCP Specialist/Technologist Athletic Trainer; Visit Provider Specialist/Technologist Athletic Trainer
DX: R59.0 Localized enlarged lymph nodes (principal); Z11.3 Encounter for screening for infections with a predominantly sexual mode of transmission
CPT/HCPCS: 87491; 87591

== ENCOUNTER 2018-10-12 13:02 | Emergency (ER) | payer OTHER, SELFPAY ==
[2018-10-12 13:04] VITALS: BP 122/64; PULSE 94; RESP 16; TEMP 36.9; O2SAT 100
[2018-10-12 13:23] LABS: Bilirubin Negative (Negative); Blood Negative (Negative); Clarity Clear; Glucose Negative (Negative); Ketones Negative (Negative); Leukocyte Esterase Negative (Negative); Nitrite Negative (Negative); Urobilinogen 0.2 EU/dL (Up TO 0.2); pH 6.5 (5-8)
--- NOTE | 2018-10-12 13:37 | ED.GENADUL_ITS ---
Discharge Plan Disposition Patient Disposition: HOME Condition: Stable Discharge Details Chief Complaint: Abd Prob Clinical Impression: Abdominal pain Primary Care Provider: Boris Doyle ED Provider: Rae Geiger Home Meds and New Rx's Prescriptions: No Action No Known Home Meds RF: 0 Discharge Instructions Instructions: Abdominal Pain (ED) Additional Instructions: Drink plenty of fluids and get plenty of rest. Follow-up with your primary care doctor next week for reevaluation and for recheck of your liver enzymes and to follow-up for likely incidental right lower lobe lung nodule noted on CT imaging of your abdomen. Return immediately to the emergency department any worsening or new concerning symptoms. Discharge Data Discharge Physician: Rae Geiger Medical Decision Making 22-year-old male with a history of anxiety with right-sided abdominal pain since this morning. He complained of pain in his right mid abdomen. Vitals within normal limits. Patient appears nontoxic. He has tenderness to palpation his right upper quadrant. No right lower quadrant, suprapubic, left upper quadrant or left lower quadrant tenderness to palpation. Diagnosis includes cholecystitis, cholelithiasis, gastroenteritis, pancreatitis. No right lower quadrant tenderness, so doubt appendicitis. Will place an IV, bolus IV fluids, labs and gallbladder ultrasound. Harsh from ultrasound called to state that patient had tenderness to palpation of the right lower quadrant while assessing for gallbladder. He also evaluated the right lower quadrant to assess the appendix but was unable to view this. Will obtain a CT abdomen and pelvis to rule out appendicitis. Labs reviewed. Normal white blood cell count. Normal electrolytes. Mild elevation of AST and ALT. Patient denies any Tylenol, alcohol, or any other drugs. 1745 --CT abdomen and pelvis negative for acute abdominal findings. There was a right lower lobe soft tissue nodule in the lung. Findings discussed with patient. Patient denies any pain and feels good to go home. Patient is instructed to follow-up with his primary care doctor for reevaluation and for recheck of his liver enzymes as they were mildly elevated today. He is also instructed to discuss with his primary care doctor the soft tissue nodule noted in the lung and for follow-up imaging as indicated. Patient is instructed to drink plenty of fluids, get plenty of rest, and to return immediately to the emergency department with any worsening or new concerning symptoms. Medical Records Medical records reviewed: Yes I reviewed the patient's medical records. Imaging Data Radiologic Study: Radiologist's impression: RIGHT UPPER QUADRANT ULTRASOUND: Limited ultrasound was performed. Gallbladder appears normal with no evidence of cholelithiasis, gallbladder wall thickening or pericholecystic fluid collection. The common duct is of normal diameter. The patient also has a question of right lower quadrant pain. Appendix not definitively identified in the right lower quadrant. Radiologic Study #2: Radiologist's impression: CT Abdomen and Pelvis With Contrast EXAM DATE/TIME: 10/12/2018 3:07 PM FINDINGS: Lower thorax: There is a right lower lobe pleural-based soft tissue nodule, 9 mm. ABDOMEN: Liver: Normal. No mass. Gallbladder and bile ducts: Normal. No calcified stones. No ductal dilation. Pancreas: Normal. No ductal dilation. Spleen: Normal. No splenomegaly. Adrenals: Normal. No mass. Kidneys and ureters: Normal. No hydronephrosis. Stomach and bowel: Diverticulosis without acute diverticulitis. Appendix: No evidence of appendicitis. PELVIS: Bladder: Bladder decompressed. Reproductive: Unremarkable as visualized. ABDOMEN and PELVIS: Intraperitoneal space: Normal. No free air. No significant fluid collection. Bones/joints: No acute fracture. No dislocation. Soft tissues: Unremarkable. Vasculature: Normal. No abdominal aortic aneurysm. Lymph nodes: Normal. No enlarged lymph nodes. IMPRESSION: 1. 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 2. No acute abnormality seen to account for symptoms. Followup right lung base pulmonary nodule. Lab Data Laboratory Tests Range/Units 10/12/18 10/12/18 10/12/18 13:15 14:30 14:30 WBC (4.4-10.8) k/cumm 5.61 RBC (4.50-6.00) m/cumm 5.20 Hgb (13.5-17.5) g/dL 14.8 Hct (40.0-50.0) % 44.2 MCV (80-95) fL 85.0 MCH (27.0-33.0) pg 28.5 MCHC (32.0-36.0) g/dL 33.5 RDW (11.8-14.1) % 12.9 Plt Count (130-400) x1000/uL 191 MPV (8.0-11.0) fL 12.4 H Immature Gran % 0.2 Neutrophils % 59.3 Lymphocytes % 28.3 Monocytes % 11.4 Eosinophils % 0.4 Basophils % 0.4 Absolute Neutrophils (1.2-6.7) k/cumm 3.33 Absolute Lymphocytes (1.2-3.4) k/cumm 1.59 Absolute Monocytes (0.11-0.7) k/cumm 0.64 Absolute Eosinophils (0.0-0.7) k/cumm 0.02 Absolute Basophils (0.0-0.2) k/cumm 0.02 Sodium (136-145) mmol/L 140 Potassium (3.5-5.1) mmol/L 3.9 Chloride (98-107) mmol/L 101 Carbon Dioxide (21.0-32.0) mmol/L 29.0 Anion Gap (3-11) mmol/L 10.0 BUN (7-18) mg/dL 14 Creatinine (0.70-1.30) mg/dL 1.05 Estimated GFR/1.73 m2 (mL/min/1.73m2) >= 60.00 Glucose (70-100) mg/dL 92 Calcium (8.5-10.1) mg/dL 9.6 Total Bilirubin (0.2-1.0) mg/dL 0.9 AST (15-37) U/L 46 H ALT (12-78) U/L 133 H Alkaline Phosphatase (46-116) U/L 78 Total Protein (6.4-8.2) g/dL 8.2 Albumin (3.4-5.0) g/dL 4.5 Lipase (73-393) U/L 90 Urine Color (Yellow) Yellow Urine Clarity Clear Urine pH (5-8) 6.5 Ur Specific [place] (1.005-1.025) 1.010 Urine Protein (Negative) mg/dL Negative Urine Ketones (Negative) mg/dL Negative Urine Blood (Negative) Negative Urine Nitrite (Negative) Negative Urine Bilirubin (Negative) Negative Urine Urobilinogen (Up TO 0.2) EU/dL 0.2 Ur Leukocyte Esterase (Negative) Negative Urine Glucose (Negative) mg/dL Negative HPI General Mode of arrival: ambulatory . Date/Time Provider Initiated Documentation: 10/12/18 13:14 . Limitations to Documentation: no limitations . Information obtained by: patient . HPI Narrative: Patient is a 22-year-old male with history of anxiety who presents with right-sided abdominal pain since this morning. He describes it as intermittent, crampy, worse with movement and palpation but denies any pain at present. He states the pain is better when remaining still. He has not taken any medication for pain. He states the pain is 5/10 at its worst. He admits to occasional nausea but denies any vomiting, diarrhea, urinary symptoms, fever, recent travel, recent antibiotics, sick contacts, chest pain, shortness of breath or urinary symptoms. He states his last bowel movement was this morning and normal. He denies any sent alcohol or drug use. Related Data Home Medications Medication Instructions Recorded Confirmed Unknown [No Known Home Meds] 10/12/18 10/12/18 Allergies Allergy/AdvReac Type Severity Reaction Status Date / Time No Known Allergies Allergy Verified 10/12/18 13:09 General Stated Complaint: Abd Prob ZION: 3 Review of Systems Review of Systems All systems reviewed & are unremarkable except as noted in HPI and below Constitutional Reports as per HPI, Denies chills and Denies fever(s) Eyes Denies blurry vision ENT Denies dizziness, Denies sore throat and Denies throat swelling Cardiovascular Denies chest pain and Denies dyspnea Respiratory Denies cough and Denies dyspnea Gastrointestinal Reports abdominal pain, Denies diarrhea and Denies vomiting Genitourinary Denies hematuria and Denies dysuria Musculoskeletal Denies back pain and Denies numbness Integumentary/Breasts Denies lesions and Denies rash Neurologic Denies dizziness, Denies focal weakness and Denies numbness Allergic/Immunologic Denies throat swelling [facility] Social History Smoking/Tobacco Use Status: Current every day Tobacco Type: e-cigarettes Alcohol Intake: current Alcohol Intake frequency: a few times a month Drug use: Rarely Substance use type: marijuana Do you feel safe at home: Yes Do you feel safe in your relationship?: Yes Additional Social history: no alcohol or marijuana since april Exam Const General: cooperative, healthy appearing and no acute [facility]: normal to inspection Face and sinus: normal facial exam Eyes General: appearance normal, both eyes and all related structures EOM: EOM intact bilaterally Neck Neck: normal visual inspection and No submandibular swelling Lymphatic: no lymphadenopathy noted Chest Chest: normal inspection of the chest and no tenderness Resp Effort & Inspection: normal respiratory effort and able to speak in complete sentences Auscultation: clear to auscultation bilaterally Cardio Rate: regular rate Rhythm: regular rhythm GI Inspection: normal to inspection Palpation: soft, not firm, not rigid and tender in the RUQ; with no rebound tenderness and Rovsing's sign negative Auscultation: normal bowel sounds Male General Exam: Yes normal external exam Skin General skin exam: no rashes or lesions noted Neuro General: alert, awake and oriented x3 Cognition: normal cognition Speech: speech normal Motor: muscle tone normal throughout Sensory Exam: no sensory deficits noted Extrem General: normal to inspection, full ROM, normal capillary refill, no calf tenderness bilaterally and no edema Psych Appearance: grossly normal Mental Status: mental status grossly normal Speech and Movement: speech and movement normal Affect: normal affect Course Vital Signs Temperature 98.4 F 10/12/18 13:04 Pulse 94 H 10/12/18 13:04 Respiratory Rate 16 10/12/18 13:04 Blood Pressure 122/64 10/12/18 13:04 Pulse Oximetry 100 10/12/18 13:04 Temperature 98.4 F 10/12/18 13:04 Temperature Source Skin 10/12/18 13:04 Pulse 94 H 10/12/18 13:04 Respiratory Rate 16 10/12/18 13:04 Respiratory Effort 10/12/18 13:09 Blood Pressure 122/64 10/12/18 13:04 Blood Pressure Position Sitting 10/12/18 13:04 Pulse Oximetry 100 10/12/18 13:04 Oxygen Delivery Method Room Air 10/12/18 13:04 Oxygen Flow Rate 0 10/12/18 13:04 Pain Level 5 10/12/18 13:04 Lab/Test Results Lab/Test Results: Laboratory Tests Range/Units 10/12/18 13:15 Urine Color (Yellow) Yellow Urine Clarity Clear Urine pH (5-8) 6.5 Ur Specific [place] (1.005-1.025) 1.010 Urine Protein (Negative) mg/dL Negative Urine Ketones (Negative) mg/dL Negative Urine Blood (Negative) Negative Urine Nitrite (Negative) Negative Urine Bilirubin (Negative) Negative Urine Urobilinogen (Up TO 0.2) EU/dL 0.2 Ur Leukocyte Esterase (Negative) Negative Urine Glucose (Negative) mg/dL Negative
--- NOTE | 2018-10-12 14:24 | DI.US_ITS ---
SYMPTOMS/DIAGNOSIS: RIGHT UPPER AND LOWER QUADRANT ABDOMINAL PAIN, ? CHOLECYSTITIS RIGHT UPPER QUADRANT ULTRASOUND: Limited ultrasound was performed. Gallbladder appears normal with no evidence of cholelithiasis, gallbladder wall thickening or pericholecystic fluid collection. The common duct is of normal diameter. The patient also has a question of right lower quadrant pain. Appendix not definitively identified in the right lower quadrant.
[2018-10-12] MEDS: Normal Saline 1,000 ML 1000 ML IV (14:42)
[2018-10-12 14:45] LABS: Abs Immature Grans 0.01 k/cumm (0.0-0.09); Absolute Basophil Count 0.02 k/cumm (0.0-0.2); Absolute Eosinophil Count 0.02 k/cumm (0.0-0.7); Absolute Lymphocyte Count 1.59 k/cumm (1.2-3.4); Absolute Monocyte Count 0.64 k/cumm (0.11-0.7); Absolute Neutrophil Count 3.33 k/cumm (1.2-6.7); Basophils % 0.4; Eosinophils % 0.4; HCT 44.2 % (40.0-50.0); HGB 14.8 g/dL (13.5-17.5); Immature Grans % 0.2; Lymphocytes % 28.3; Mean Corp. HGB Concentration 33.5 g/dL (32.0-36.0); Mean Corpuscular Hemoglobin 28.5 pg (27.0-33.0); Mean Platelet Volume 12.4 fL (8.0-11.0); Monocytes % 11.4; Neutrophils % 59.3; Platelet Count 191 x1000/uL (130-400); RBC Distribution Width 12.9 % (11.8-14.1); White Blood Cell Count 5.61 k/cumm (4.4-10.8)
[2018-10-12 14:56] LABS: ALT 133 U/L (12-78); AST 46 U/L (15-37); Albumin 4.5 g/dL (3.4-5.0); Alkaline Phosphatase 78 U/L (46-116); BUN 14 mg/dL (7-18); Bilirubin, Total 0.9 mg/dL (0.2-1.0); CREATININE 1.05 mg/dL (0.70-1.30); Chloride 101 mmol/L (98-107); Glucose 92 mg/dL (70-100); Lipase 90 U/L (73-393); Potassium 3.9 mmol/L (3.5-5.1); Sodium 140 mmol/L (136-145); Total Protein 8.2 g/dL (6.4-8.2)
[2018-10-12 15:00] LABS: Calcium 9.6 mg/dL (8.5-10.1)
--- NOTE | 2018-10-12 15:06 | DI.CT_ITS ---
SYMPTOM/DIAGNOSIS: RLQ ABD PAIN, ? APPENDICITIS ABDOMEN AND PELVIC CT: CT examination of the abdomen and pelvis was performed with a bolus infusion of 100 cc's of Omnipaque 350. Images obtained through the lung bases show a 10 mm. in diameter right basilar pleural based intrapulmonary nodule. A smaller, approximately 4 mm. in diameter nodule is seen more anteriorly along the right chest wall. The findings are nonspecific but the possibility of malignancy is not excluded and a chest CT is requested for further evaluation. Liver, spleen and pancreas appear normal. Gallbladder and bile ducts are CT normal. Adrenals and kidneys appear normal. Abdominal aorta is of normal diameter and no major vascular abnormality is seen. No abdominal wall hernia is seen. No abdominal or pelvic adenopathy is seen. Pancreas is normal. No evidence of bowel obstruction or diverticulitis. CONCLUSION: No evidence of acute intra-abdominal process. Indeterminate right intrapulmonary nodules noted, chest CT requested to evaluate the possibility of neoplastic disease.
[2018-10-12] MEDS: Omnipaque 350 MG/ML 100 ML BTL IJ (17:14)
--- NOTE | 2018-10-12 17:30 | DI.VRAD_ITS ---
EXAM: CT Abdomen and Pelvis With Contrast EXAM DATE/TIME: 10/12/2018 3:07 PM CLINICAL HISTORY: 22 years old, male; Pain; Abdominal pain TECHNIQUE: Imaging protocol: Axial computed tomography images of the abdomen and pelvis with intravenous contrast. Coronal and sagittal reformatted images were created and reviewed. COMPARISON: US abdomen limited 10/12/2018 1:48 PM FINDINGS: Lower thorax: There is a right lower lobe pleural-based soft tissue nodule, 9 mm. ABDOMEN: Liver: Normal. No mass. Gallbladder and bile ducts: Normal. No calcified stones. No ductal dilation. Pancreas: Normal. No ductal dilation. Spleen: Normal. No splenomegaly. Adrenals: Normal. No mass. Kidneys and ureters: Normal. No hydronephrosis. Stomach and bowel: Diverticulosis without acute diverticulitis. Appendix: No evidence of appendicitis. PELVIS: Bladder: Bladder decompressed. Reproductive: Unremarkable as visualized. ABDOMEN and PELVIS: Intraperitoneal space: Normal. No free air. No significant fluid collection. Bones/joints: No acute fracture. No dislocation. Soft tissues: Unremarkable. Vasculature: Normal. No abdominal aortic aneurysm. Lymph nodes: Normal. No enlarged lymph nodes. IMPRESSION: 1. 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 2. No acute abnormality seen to account for symptoms. Followup right lung base pulmonary nodule. COMMENT: Preliminary interpretation is based on receipt of 298 image(s). A final report will be issued subsequently. Dictated and Authenticated by: Libby Marinelli MD. Ordering:CHELSEY Mcbride MD
[2018-10-12 18:03] VITALS: BP 120/58; PULSE 82; RESP 16; TEMP 37.2; O2SAT 98
[2018-10-12 18:10] VITALS: BP 120/58; PULSE 82; RESP 16; TEMP 37.2; O2SAT 98
--- NOTE | 2018-10-13 13:13 | PDOC.ERCMPRO ---
Care Management Progress Note 10/13-Dr. Geiger requested this call José to let him know that the radiologist was requesting an outpatient Chest CT w/contrast for further assessment of two nodules found. 10 mm Right lung base nodule, 4 mm nodule: anterior right chest wall. Boris Doyle, [facility] is PCP. Called [facility] and discussed the above and requested that [facility] set up the outpatient CT and follow up for which they state they will. Called José with the above information, he verbalized understanding and stated he would wait for [facility] to call with f/u. Dr. Geiger aware of the above plans.
--- NOTE | 2018-10-13 13:19 | CMPROGNOTE_ITS ---
Care Management Progress Note 10/13-Dr. Geiger requested this call José to let him know that the radiologist was requesting an outpatient Chest CT w/contrast for further assessment of two nodules found. 10 mm Right lung base nodule, 4 mm nodule: anterior right chest wall. Boris Doyle, [facility] is PCP. Called [facility] and discussed the above and requested that [facility] set up the outpatient CT and follow up for which they state they will. Called José with the above information, he verbalized understanding and stated he would wait for [facility] to call with f/u. Dr. Geiger aware of the above plans.
--- NOTE | 2018-10-13 22:19 | W.ED.FU ---
Discussed with radiologist Dr. Biggs today. He had reviewed the CT abdomen from yesterday and noted 10 mm. in diameter right basilar pleural based intrapulmonary nodule. A smaller, approximately 4 mm. in diameter nodule is seen more anteriorly along the right chest wall. The findings are nonspecific but the possibility of malignancy is not excluded and a chest CT is requested for further evaluation. Dr. Biggs had stated that the CT chest can be done with contrast and as an outpatient through his primary care doctor. Discussed with care management who called patient at home today and advised him to call his primary care doctor to schedule a follow-up appointment for reevaluation and for an order for an outpatient CT chest with contrast for further evaluation of these findings.
== END 2018-10-12 18:18 | disposition home or self-care (01) ==
PROVIDERS: Emergency Provider Physician Assistant; PCP Specialist/Technologist Athletic Trainer
DX: R10.11 Right upper quadrant pain (principal)
CPT/HCPCS: 36415; 80053; 83690; 96360; 99285; 74177; 76705; 81003; 85025; 99284; J3490

== ENCOUNTER 2018-10-25 00:47 | Outpatient (CLI) | payer OTHER, SELFPAY ==
[2018-10-25] MEDS: Omnipaque 350 MG/ML 100 ML BTL IJ (15:28)
--- NOTE | 2018-10-25 15:30 | DI.CT_ITS ---
SYMPTOMS/DIAGNOSIS: PULMONARY NODULE, R91.1, EVALUATE RIGHT INTRAPULMONARY NODULE NOTED ON CT SCAN OF ABDOMEN AND PELVIS 10/13/[address]: The study was carried out with an intravenous injection of 100 cc of Omnipaque 350. The lungs are unremarkable save for a 10 mm pleural-based right pulmonary nodule. Again demonstrated is a roughly 4 mm pleural-based nodule, which is situated somewhat more anteriorly along the right chest wall. There is otherwise no evident pulmonary abnormality. There is no pleural effusion. There is no evidence of hilar or mediastinal adenopathy. The heart is not enlarged. There is no pericardial effusion. The aorta is unremarkable. SUMMARY: Right pulmonary nodules are demonstrated, the largest of which measures approximately 10 mm in diameter. This patient could be further evaluated with a PET/CT and, if appropriate, a biopsy could be considered.
== END 2018-10-25 01:07 ==
PROVIDERS: PCP Specialist/Technologist Athletic Trainer; Visit Provider Nurse Practitioner Family
DX: R91.1 Solitary pulmonary nodule (principal); R91.8 Other nonspecific abnormal finding of lung field
CPT/HCPCS: 71260; J3490